=== PATIENT | female | born 1995 | race Caucasian/White ===

== ENCOUNTER 2016-07-09 12:52 | Emergency (ER) | payer BC ==
[2016-07-09 13:12] VITALS: BP 124/81; PULSE 103; RESP 18; TEMP 97.3
[2016-07-09] MEDS ORDERED: SODIUM CHLORIDE 0.9% 1,000 ML IV STA ×2 (13:32)
[2016-07-09] MEDS ORDERED: ONDANSETRON 4 MG/2 ML VIAL IVP STA (13:32)
[2016-07-09] MEDS ORDERED: LORazepam 2 MG/ML SYRINGE IV STA (13:33)
[2016-07-09] MEDS ORDERED: PANTOPRAZOLE 40 MG/10 ML VIAL IVP STA (13:33)
[2016-07-09] MEDS ORDERED: diphenhydrAMINE 50 MG/ML 1 ML VIAL IVP STA (13:33)
--- NOTE | 2016-07-09 13:55 | ED ---
General Adult HPI - General Chief complaint: Nausea/Vomiting/Diarrhea Stated complaint: Vomiting Time Seen by Provider: 07/09/16 13:16 Source: patient, RN notes reviewed, old records reviewed Mode of arrival: ambulatory Limitations: no limitations - History of Present Illness Initial comments: Is a 21-year-old female here for evaluation. This patient presents for evaluation of nausea and vomiting. Patient does have stomach issues. Unknown causes. Patient states that underbelly services regarding severe and continuous. APtient takes no medications, may have went out last night per her father as patient is unable to talk or conversate secondarily to active vomiting - Related Data Home Medications Medication Instructions Recorded Confirmed No Known Home Medications [No 07/09/16 07/09/16 Known Home Medications] Allergies Allergy/AdvReac Type Severity Reaction Status Date / Time No Known Allergies Allergy Verified 07/09/16 13:16 Review of Systems ROS Statement: Those systems with pertinent positive or pertinent negative responses have been documented in the HPI. ROS Other: All systems not noted in ROS Statement are negative. Past Medical History Past Medical History: No Reported History History of Any Multi-Drug Resistant Organisms: None Reported Past Surgical History: No Surgical Hx Reported Past Psychological History: No Psychological Hx Reported Smoking Status: Never smoker Past Alcohol Use History: Occasional Past Drug Use History: None Reported General Exam Limitations: no limitations General appearance: alert, in no apparent distress, anxious, in distress Head exam: Present: atraumatic, normocephalic, normal inspection Eye exam: Present: normal appearance, PERRL, EOMI. Absent: scleral icterus, conjunctival injection, periorbital swelling ENT exam: Present: normal exam, mucous membranes moist Neck exam: Present: normal inspection. Absent: tenderness, meningismus, lymphadenopathy Respiratory exam: Present: normal lung sounds bilaterally. Absent: respiratory distress, wheezes, rales, rhonchi, stridor Cardiovascular Exam: Present: normal rhythm, tachycardia, normal heart sounds. Absent: systolic murmur, diastolic murmur, rubs, gallop, clicks GI/Abdominal exam: Present: soft, normal bowel sounds. Absent: distended, tenderness, guarding, rebound, rigid Extremities exam: Present: normal inspection, full ROM, normal capillary refill. Absent: tenderness, pedal edema, joint swelling, calf tenderness Back exam: Present: normal inspection Neurological exam: Present: alert, oriented X3, CN II-XII intact Psychiatric exam: Present: normal affect, normal mood Skin exam: Present: warm, dry, intact, normal color. Absent: rash Course Vital Signs 07/09/16 13:09 Temperature 97.3 F L Pulse Rate 103 H Respiratory 18 Rate Blood Pressure 124/81 O2 Sat by Pulse 99 Oximetry - Reevaluation(s) Reevaluation #1: 07/09/16 13:53 patients symptoms are resolved Medical Decision Making - Medical Decision Making 21 female to ED with nausea and vomiting, patients symptoms are improved and is ok for dishcharge Disposition Clinical Impression: Dehydration, Nausea and vomiting Disposition: HOME SELF-CARE Instructions: Acute Nausea and Vomiting (ED) Referrals: J Carlos Bright MD [Primary Care Provider] - 1-2 days
[2016-07-09 14:10] LABS: Basophils % (A) 0 %; CH 31.8; CHCM 34.8; Eosinophils % (A) 0 %; HCT 43.9 % (34.0-46.0); HDW 2.56; Luc # (Auto) 0.05; Luc % (Auto) 1; Lymphocytes # (A) 0.7 k/uL (1.0-4.8); Lymphocytes % (A) 7 %; MCH 31.5 pg (25.0-35.0); MCHC 34.3 g/dL (31.0-37.0); MCV 91.8 fL (80.0-100.0); Mean Platelet Volume 6.8; Monocytes # (A) 0.3 k/uL (0-1.0); Monocytes % (A) 3 %; Neutrophils # (A) 8.1 k/uL (1.3-7.7); Neutrophils % (A) 89 %; RBC 4.78 m/uL (3.80-5.40); RDW 12.7 % (11.5-15.5); WBC 9.1 k/uL (3.8-10.6); WBC (Perox) 9.05
[2016-07-09 14:19] LABS: ALT 36 U/L (9-52); AST 37 U/L (14-36); Alcohol <10 mg/dL; Alkaline Phosphatase 61 U/L (38-126); Anion Gap 14 mmol/L; Blood Urea Nitrogen 14 mg/dL (7-17); Calcium 10.3 mg/dL (8.4-10.2); Carbon Dioxide 22 mmol/L (22-30); Chloride 107 mmol/L (98-107); Glucose 141 mg/dL (74-99); Magnesium 1.7 mg/dL (1.6-2.3); Non-African American GFR(MDRD) >60 (>60 ml/min/1.73 sqM); Sodium 143 mmol/L (137-145); Total Bilirubin 0.9 mg/dL (0.2-1.3); Total Protein 8.5 g/dL (6.3-8.2)
[2016-07-09 14:21] LABS: Potassium 3.7 mmol/L (3.5-5.1)
== END 2016-07-09 15:37 | disposition home or self-care (01) ==
LOC: EC 12:52
DX: E86.0 Dehydration (principal)
CPT/HCPCS: 36415; 80053; 83735; 84100; 85025; 80320; 99284; 96374; 96375 ×3; 96361; J2060; J1200; J2405; C9113

== ENCOUNTER 2019-07-28 06:52 | Emergency (ER) | payer BC ==
[2019-07-28 07:04] VITALS: TEMP 98.2
[2019-07-28] MEDS ORDERED: METOCLOPRAMIDE 5 MG/ML 2 ML VIAL IVP STA (07:17)
[2019-07-28] MEDS ORDERED: SODIUM CHLORIDE 0.9% 1,000 ML IV STA (07:17)
--- NOTE | 2019-07-28 07:29 | ED ---
General Adult HPI - General Chief complaint: Nausea/Vomiting/Diarrhea Stated complaint: Vomiting Time Seen by Provider: 07/28/19 07:06 Source: patient, family, RN notes reviewed, old records reviewed Mode of arrival: ambulatory Limitations: no limitations - History of Present Illness Initial comments: 24-year-old female patient presents to ED for evaluation of nausea vomiting abdominal pain. Patient states that starting on she began having naus ea and vomiting. Patient states that she cannot stop vomiting. Reports that she has pain all over her abdomen. Denies any localized area. Denies any other complaints at this time. Systemic: Pt denies fatigue, fever/chills, rash. Pt denies weakness, night sweats, weight loss. Neuro: Pt denies headache, visual disturbances, syncope or pre-syncope. HEENT: Pt denies ocular discharge or irritation, otalgia, rhinorrhea, pharyngitis or notable lymphadenopathy. Cardiopulmonary: Pt denies chest pain, SOB, heart palpitations, dyspnea on exertion. : Pt denies dysuria, burning w/ urination, frequency/urgency. Denies new onset urinary or bowel incontinence. MSK: Pt denies myalgia, loss of strength or function in extremities. Neuro: Pt denies new onset weakness, paresthesias. - Related Data Home Medications Medication Instructions Recorded Confirmed No Known Home Medications 07/09/16 07/09/16 Allergies Allergy/AdvReac Type Severity Reaction Status Date / Time No Known Allergies Allergy Verified 07/28/19 06:58 Review of Systems ROS Statement: Those systems with pertinent positive or pertinent negative responses have been documented in the HPI. ROS Other: All systems not noted in ROS Statement are negative. Past Medical History Past Medical History: No Reported History History of Any Multi-Drug Resistant Organisms: None Reported Past Surgical History: No Surgical Hx Reported Past Psychological History: No Psychological Hx Reported Smoking Status: Current some day smoker Past Alcohol Use History: Occasional Past Drug Use History: Marijuana General Exam - General Exam Comments Initial Comments: Constitutional: NAD, AOX3, Pt has pleasant affect. HEENT: NC/AT, trachea midline, neck supple, no lymphadenopathy. External ears appear normal, without discharge. Mucous membranes moist. EOM intact. There is no scleral icterus. No pallor noted. Cardiopulmonary: RRR, no murmurs, rubs or gallops, no JVD noted. Lungs CTAB in anterior and posterior palmer. No peripheral edema. Abdominal exam: Abdomen soft and non-distended. Abdomen tender to palpation in periumbilical region. Bowel sounds active in LLQ. No hepatosplenomegaly. No ecchymosis Neuro: CN II-XII grossly intact. No nuchal rigidity. No raccon eyes, no finch sign, no hemotympanum. No cervical spinal tenderness. MSK: Sensation intact in upper and lower extremities. Full active ROM in upper and lower extremities. Limitations: no limitations Course Vital Signs 07/28/19 07/28/19 06:59 09:02 Temperature 98.2 F Pulse Rate 114 H 92 Respiratory 22 18 Rate Blood Pressure 127/78 132/78 O2 Sat by Pulse 99 99 Oximetry Medical Decision Making - Medical Decision Making 24-year-old female patient presents to ED for evaluation of nausea vomiting abdominal pain. Patient states that starting on she began having nausea and vomiting. Patient states that she cannot stop vomiting. Reports that she has pain all over her abdomen. Denies any localized area. Denies any other complaints at this time. Patient vital signs are stable, afebrile. Ph ysical exam displayed periumbilical abdominal tenderness. Laboratory investigations are obtained and are overall unremarkable. Patient does have blood in her urine and is on her menses at this time. CT abdomen and pelvis displays what appears to be appendix within normal limits. Patient is not t seferino in the right lower quadrant region. Also displays multiple crenulated appearing follicles in the left ovary which may be hemorrhagic follicles. Moderate amount of free fluid in the pelvis also noted ostomy physiologic in nature related to ruptured cyst. Patient symptoms are well controlled. Repeat abdominal exam again confirms very mild tenderness in the periumbilical region. There is no lower quadrant tenderness whatsoever. Patient also denies this. Patient reports that she had similar symptoms approximately one month ago when she started her menses however it only lasted one day. Patient is stable at time of discharge. There is no active vomiting. States that she feels much improved. Patient was bolused 1.5 L normal saline emergency Department will be discharged with outpatient primary care and [employer] follow-up. Will return to ER if condition worsens. Case discussed with Dr. Cuevas. - Lab Data Result diagrams: 07/28/19 07:28 07/28/19 07:28 Lab Results 07/28/19 07/28/19 07/28/19 Range/Units 07:20 07:28 07:28 WBC 7.6 (3.8-10.6) k/uL RBC 4.91 (3.80-5.40) m/uL Hgb 14.9 (11.4-16.0) gm/dL Hct 45.4 (34.0-46.0) % MCV 92.5 (80.0-100.0) fL MCH 30.3 (25.0-35.0) pg MCHC 32.8 (31.0-37.0) g/dL RDW 12.5 (11.5-15.5) % Plt Count 270 (150-450) k/uL Neutrophils % 61 % Lymphocytes % 27 % Monocytes % 7 % Eosinophils % 3 % Basophils % 1 % Neutrophils # 4.6 (1.3-7.7) k/uL Lymphocytes # 2.0 (1.0-4.8) k/uL Monocytes # 0.5 (0-1.0) k/uL Eosinophils # 0.3 (0-0.7) k/uL Basophils # 0.0 (0-0.2) k/uL Sodium 141 (137-145) mmol/L Potassium 4.1 (3.5-5.1) mmol/L Chloride 108 H (98-107) mmol/L Carbon Dioxide 19 L (22-30) mmol/L Anion Gap 14 mmol/L BUN 9 (7-17) mg/dL Creatinine 0.58 (0.52-1.04) mg/dL Est GFR (CKD-EPI)AfAm >90 (>60 ml/min/1.73 sqM) Est GFR (CKD-EPI)NonAf >90 (>60 ml/min/1.73 sqM) Glucose 105 H (74-99) mg/dL Calcium 9.7 (8.4-10.2) mg/dL Total Bilirubin 0.5 (0.2-1.3) mg/dL AST 24 (14-36) U/L ALT 16 (4-34) U/L Alkaline Phosphatase 75 (38-126) U/L Total Protein 8.3 H (6.3-8.2) g/dL Albumin 4.8 (3.5-5.0) g/dL Lipase 141 (23-300) U/L HCG, Qual Urine Color Yellow Urine Appearance Cloudy H (Clear) Urine pH 5.5 (5.0-8.0) Ur Specific [place] 1.027 (1.001-1.035) Urine Protein 1+ H (Negative) Urine Glucose (UA) Negative (Negative) Urine Ketones Trace H (Negative) Urine Blood Large H (Negative) Urine Nitrite Negative (Negative) Urine Bilirubin Negative (Negative) Urine Urobilinogen <2.0 (<2.0) mg/dL Ur Leukocyte Esterase Trace H (Negative) Urine RBC 1 (0-5) /hpf Urine WBC 4 (0-5) /hpf Ur Squamous Epith Cells 21 H (0-4) /hpf Urine Bacteria Occasional H (None) /hpf Hyaline Casts 8 H (0-2) /lpf Urine Mucus Many H (None) /hpf 07/28/19 Range/Units 07:28 WBC (3.8-10.6) k/uL RBC (3.80-5.40) m/uL Hgb (11.4-16.0) gm/dL Hct (34.0-46.0) % MCV (80.0-100.0) fL MCH (25.0-35.0) pg MCHC (31.0-37.0) g/dL RDW (11.5-15.5) % Plt Count (150-450) k/uL Neutrophils % % Lymphocytes % % Monocytes % % Eosinophils % % Basophils % % Neutrophils # (1.3-7.7) k/uL Lymphocytes # (1.0-4.8) k/uL Monocytes # (0-1.0) k/uL Eosinophils # (0-0.7) k/uL Basophils # (0-0.2) k/uL Sodium (137-145) mmol/L Potassium (3.5-5.1) mmol/L Chloride (98-107) mmol/L Carbon Dioxide (22-30) mmol/L Anion Gap mmol/L BUN (7-17) mg/dL Creatinine (0.52-1.04) mg/dL Est GFR (CKD-EPI)AfAm (>60 ml/min/1.73 sqM) Est GFR (CKD-EPI)NonAf (>60 ml/min/1.73 sqM) Glucose (74-99) mg/dL Calcium (8.4-10.2) mg/dL Total Bilirubin (0.2-1.3) mg/dL AST (14-36) U/L ALT (4-34) U/L Alkaline Phosphatase (38-126) U/L Total Protein (6.3-8.2) g/dL Albumin (3.5-5.0) g/dL Lipase (23-300) U/L HCG, Qual Not Detected Urine Color Urine Appearance (Clear) Urine pH (5.0-8.0) Ur Specific [place] (1.001-1.035) Urine Protein (Negative) Urine Glucose (UA) (Negative) Urine Ketones (Negative) Urine Blood (Negative) Urine Nitrite (Negative) Urine Bilirubin (Negative) Urine Urobilinogen (<2.0) mg/dL Ur Leukocyte Esterase (Negative) Urine RBC (0-5) /hpf Urine WBC (0-5) /hpf Ur Squamous Epith Cells (0-4) /hpf Urine Bacteria (None) /hpf Hyaline Casts (0-2) /lpf Urine Mucus (None) /hpf Disposition Clinical Impression: Nausea and vomiting, Abdominal pain Disposition: HOME SELF-CARE Condition: Stable Instructions (If sedation given, give patient instructions): Acute Nausea and Vomiting (ED) Additional Instructions: Follow-up with primary care provider tomorrow. May use Zofran every 8 hours as needed for nausea. Continue to drink lots of fluids. Return immediately to ER if condition worsens in any way. Is patient prescribed a controlled substance at d/c from ED?: No Referrals: None,Stated [Primary Care Provider] - 1-2 days Zbigniew Muir [STAFF PHYSICIAN] - 1-2 days
[2019-07-28 07:42] LABS: Basophils % (A) 1 %; Eosinophils # (A) 0.3 k/uL (0-0.7); Eosinophils % (A) 3 %; HCT 45.4 % (34.0-46.0); HGB 14.9 gm/dL (11.4-16.0); Lymphocytes % (A) 27 %; MCH 30.3 pg (25.0-35.0); MCHC 32.8 g/dL (31.0-37.0); MCV 92.5 fL (80.0-100.0); Mean Platelet Volume 7.2; Monocytes # (A) 0.5 k/uL (0-1.0); Monocytes % (A) 7 %; Neutrophils # (A) 4.6 k/uL (1.3-7.7); Neutrophils % (A) 61 %; Platelet Count 270 k/uL (150-450); RBC 4.91 m/uL (3.80-5.40); RDW 12.5 % (11.5-15.5); WBC 7.6 k/uL (3.8-10.6)
[2019-07-28 07:54] LABS: ALT 16 U/L (4-34); AST 24 U/L (14-36); African American GFR (CKD) >90 (>60 ml/min/1.73 sqM); Albumin 4.8 g/dL (3.5-5.0); Alkaline Phosphatase 75 U/L (38-126); Anion Gap 14 mmol/L; Blood Urea Nitrogen 9 mg/dL (7-17); Calcium 9.7 mg/dL (8.4-10.2); Carbon Dioxide 19 mmol/L (22-30); Chloride 108 mmol/L (98-107); Glucose 105 mg/dL (74-99); Non-African American GFR(CKD) >90 (>60 ml/min/1.73 sqM); Potassium 4.1 mmol/L (3.5-5.1); Sodium 141 mmol/L (137-145); Total Bilirubin 0.5 mg/dL (0.2-1.3); Total Protein 8.3 g/dL (6.3-8.2)
[2019-07-28] MEDS ORDERED: ONDANSETRON 4 MG/2 ML VIAL IVP STA (07:55)
[2019-07-28] MEDS ORDERED: KETOROLAC 30 MG/ML 1 ML VIAL IVP STA (07:55)
[2019-07-28 08:23] LABS: Appearance,Urine Cloudy (Clear); Bacteria,Urine Occasional /hpf; Bilirubin,Urine Negative (Negative); Blood,Urine Large (Negative); Color,Urine Yellow; Glucose,Urine (UA) Negative (Negative); Hyaline Casts,Urine 8 /lpf (0-2); Ketones,Urine Trace (Negative); Leukocyte Esterase,Urine Trace (Negative); Mucus,Urine Many /hpf; Nitrite,Urine Negative (Negative); PH, Urine 5.5 (5.0-8.0); Protein,Urine 1+ (Negative); RBC,Urine 1 /hpf (0-5); Specific Gravity,Urine 1.027 (1.001-1.035); Squamous Epithelial Cell,Urine 21 /hpf (0-4); Urobilinogen,Urine <2.0 mg/dL (<2.0); WBC,Urine 4 /hpf (0-5)
[2019-07-28] MEDS ORDERED: SODIUM CHLORIDE 0.9% 500 ML 500 ML IV ONE (08:53)
[2019-07-28 09:04] VITALS: RESP 18
--- NOTE | 2019-07-28 09:17 | CT ---
EXAMINATION TYPE: CT abdomen pelvis w con DATE OF EXAM: 07/28/2019 HISTORY: vomiting since CT DLP: 498.3mGycm Automated Exposure Control for Dose Reduction was Utilized. CONTRAST: CT scan of the abdomen and pelvis is performed with IV Contrast, patient injected with 100 mL of Isov ue 300. COMPARISON: None. FINDINGS: LUNG BASES: No significant abnormality is appreciated. LIVER/GB: No significant abnormality is appreciated. No radiopaque calculi in the gallbladder. PANCREAS: No significant abnormality is seen. SPLEEN: No splenomegaly. ADRENALS: No significant abnormality is seen. KIDNEYS: Kidneys enhance and excrete symmetrically without hydronephrosis. BOWEL: What appears to be the appendix is within normal limits and air-containing and coronal image 4 3 and axial image 58. UTERUS/ADNEXA: There is free fluid within the pelvis and multiple crenulated left ovarian lesions, po ssibly hemorrhagic follicles. Low-attenuation of the endometrium likely relates to phase of menses. LYMPH NODES: No greater than 1cm abdominal or pelvic lymph nodes are appreciated. OSSEOUS STRUCTURES: No significant abnormality is seen. IMPRESSION: 1. Although the appendix is poorly visualized, difficult to separate from adjacent bowel loops, what appears to be the appendix is within normal limits. If there is further clinical concern for acute ap pendicitis repeat examination with oral contrast would be of benefit. 2. Multiple crenulated appearing follicles in the left ovary may be hemorrhagic follicles. Moderate a mount of free fluid in the pelvis is also noted, possibly physiologic in nature related to recently r uptured cyst.
[2019-07-28] MEDS ORDERED: LORazepam 2 MG/ML INJ IV STA ×2 (09:55)
[2019-07-28] MEDS ORDERED: ONDANSETRON 4 MG ODT STARTER PACK 2 TAB BTL PO STA (11:02)
[2019-07-28 11:26] VITALS: BP 121/74; PULSE 80
== END 2019-07-28 11:23 | disposition home or self-care (01) ==
LOC: EC 06:52
DX: R11.2 Nausea with vomiting, unspecified (principal); R10.9 Unspecified abdominal pain; R10.815 Periumbilic abdominal tenderness; R31.9 Hematuria, unspecified; F17.200 Nicotine dependence, unspecified, uncomplicated
CPT/HCPCS: 36415; 80053; 83690; 85025; 81001; 84703; 74177; 99284; 96374; 96375 ×3; 96361 ×2; J2060; J2765; J2405; J1885; S0119; Q9967

== ENCOUNTER 2019-07-28 14:51 | Observation (INO) | payer BC ==
[2019-07-28] MEDS ORDERED: LORazepam 2 MG/ML INJ IV STA (15:11)
[2019-07-28] MEDS ORDERED: METOCLOPRAMIDE 5 MG/ML 2 ML VIAL IVP STA (15:11)
[2019-07-28] MEDS ORDERED: SODIUM CHLORIDE 0.9% 500 ML 500 ML IV STA (15:11)
--- NOTE | 2019-07-28 15:16 | ED ---
General Adult HPI - General Source: patient, family Mode of arrival: ambulatory Limitations: no limitations <Jennifer Hunt - Last Filed: 07/28/19 17:43> <Arina Cortés - Last Filed: 07/31/19 11:47> - General Chief complaint: Abdominal Pain Stated complaint: Vomiting Time Seen by Provider: 07/28/19 15:03 - History of Present Illness Initial comments: Patient is a 24-year-old female presenting to the emergency Department with complaints of nausea, vomiting, lower abdominal pain 3 days. Patient was seen in the ER just earlier today for same thing. Patient states she went home, was feeling better and took a nap. Patient states she woke up from her nap approximately 1 hour ago and started having nausea, vomiting, lower abdominal pain again. She has been vomiting since. She states she did not realize she was able to take the Zofran medicine so soon so she did not attempt this. He describes the abdominal pain as mostly lower abdominal cramping. Mother is also here with patient's they believe that these symptoms may be related to her menstrual cycle. Patient states this happened last month that only lasted for a day. She just recently started her period and this is going on for 3 days now. She states she has not seen an CORPORATE GENERAL MANAGER yet as she is "afraid of what they might tell her." She denies any recent fever, chills, chest pain, shortness of breath. She denies any urinary complaints. She has no further complaints at this time. Upon arrival to the ER, patient is tachycardia at 120, rest of vitals normal. (Jennifer Hunt) - Related Data Previous Rx's Medication Instructions Recorded Ondansetron Odt [Zofran Odt] 4 mg PO Q8HR PRN #12 tab 07/29/19 Allergies Allergy/AdvReac Type Severity Reaction Status Date / Time No Known Allergies Allergy Verified 07/28/19 17:26 Review of Systems ROS Other: All systems not noted in ROS Statement are negative. <Jennifer Hunt - Last Filed: 07/28/19 17:43> ROS Other: All systems not noted in ROS Statement are negative. <Arina Cortés - Last Filed: 07/31/19 11:47> ROS Statement: Those systems with pertinent positive or pertinent negative responses have been documented in the HPI. Past Medical History Past Medical History: No Reported History History of Any Multi-Drug Resistant Organisms: None Reported Past Surgical History: No Surgical Hx Reported Past Psychological History: No Psychological Hx Reported Smoking Status: Current every day smoker Past Alcohol Use History: Occasional Past Drug Use History: Marijuana <Jennifer Hunt Melani - Last Filed: 07/28/19 17:43> General Exam Limitations: no limitations <MarileeJennifer Melani - Last Filed: 07/28/19 17:43> - General Exam Comments Initial Comments: GENERAL: Nontoxic appearing, is dry heaving, teary-eyed, in no acute distress. HEAD: Atraumatic, normocephalic. EYES: Pupils equal round and reactive to light, extraocular movements intact, sclera anicteric, conjunctiva are normal. ENT: TMs normal, nares patent, oropharynx clear without exudates. Moist mucous membranes. NECK: Normal range of motion, supple without lymphadenopathy or JVD. LUNGS: Breath sounds clear to auscultation bilaterally and equal. No wheezes rales or rhonchi. HEART: Tachycardia rate and rhythm without murmurs, rubs or gallops. ABDOMEN: Lower abdominal discomfort, no acute severe pain. Soft, normoactive bowel sounds. No guarding, no rebound. No masses appreciated. : Deferred EXTREMITIES: Normal range of motion, no pitting or edema. No clubbing or cyanosis. NEUROLOGICAL: Normal speech, normal gait. PSYCH: Normal mood, normal affect. SKIN: Warm, Dry, normal turgor, no rashes or lesions noted. (Jennifer Hunt) Course Vital Signs 07/28/19 14:56 Temperature 98.2 F Pulse Rate 120 H Respiratory 18 Rate Blood Pressure 128/82 O2 Sat by Pulse 100 Oximetry Medical Decision Making <MarileeVereniceJennifre L - Last Filed: 07/28/19 17:43> - Lab Data Result diagrams: 07/29/19 07:25 07/29/19 07:25 <Arina Cortés - Last Filed: 07/31/19 11:47> - Medical Decision Making Patient is a 24-year-old female here for nausea, vomiting, lower abdominal cramping 3 days. Patient was seen in the ER earlier today for same complaint. Previous lab work and imaging was reviewed. CT earlier today shows a multiple follicles in the left ovary, moderate amount of free fluid in the pelvis which could bephysiologic in nature or related to a recently ruptured cyst. Patient is not . Patient was given fluids, Reglan, Ativan. She was resting comfortably but upon recheck and speaking with patient states started becoming nauseous again. Consulted with admitting physician who recommended a dose of Tigan. We did try this medication however patient remains nauseous. Patient will be admitted for intractable nausea and vomiting. Dr. Vasquez is accepting. Patient is agreement with this plan of care. Case discussed with Dr. Cortés. (Jennifer Hunt) I was available for consultation in the emergency department. The history and physical exam were done by the midlevel provider. I was consulted for this patients care. I reviewed the case with the midlevel provider and based on their presentation of the patient, I agree with the assessment, medical decision making and plan of care as documented. Chart was dictated using [employer] dictation software. Attempts were made to correct any dictation errors however some typographical errors may persist. Patient was seen during a national state of emergency due to the Covid-19 pandemic. (Arina Cortés) Disposition Is patient prescribed a controlled substance at d/c from ED?: No Decision Date: 07/28/19 Decision Time: 17:45 <Jennifer Hunt - Last Filed: 07/28/19 17:43> <Arina Cortés - Last Filed: 07/31/19 11:47> Clinical Impression: Intractable nausea and vomiting Disposition: ADMITTED IP TO THIS HOSP Condition: Good
[2019-07-28] MEDS ORDERED: TRIMETHOBENZAMIDE 100 MG/ML 2 ML VIAL IM STA (16:21)
[2019-07-28] MEDS ORDERED: NALOXONE 0.4 MG/ML 1 ML VIAL IV PRN (17:41)
[2019-07-28] MEDS ORDERED: IBUPROFEN 400 MG TAB PO PRN (17:41)
[2019-07-28] MEDS: SODIUM CHLORIDE 0.9% 1,000 ML IV SCH (18:06)
[2019-07-28] MEDS ORDERED: ACETAMINOPHEN TAB 325 MG TAB PO PRN (18:46)
[2019-07-28] MEDS ORDERED: TRIMETHOBENZAMIDE 300 MG CAP PO PRN (18:58)
--- NOTE | 2019-07-28 19:01 | P.HPIM ---
History of Present Illness H&P Date: 07/28/19 Chief Complaint: Nausea and vomiting 24-year-old female with no past medical history presents the ED for intractable nausea and vomiting. Patient reports nausea and vomiting since . She reports epigastric discomfort related to throwing up. Her abdominal pain is at times localized to the left upper quadrant. Her last menstrual period started today. Patient reports previously undergoing upper and lower GI scopes along with nuclear studies which have all turned up negative. 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 Patient reports that her nausea and vomiting is usually cyclical and syncs with her menstrual cycle. Patient reports smoking marijuana a few times a week for many years. She denies any other illicit drug use, alcohol or smoking cigarettes. She denies any headache, lower nieves edema, fever or chills, cough, chest pain, shortness of breath, palpitations, changes in urination or bowel habits. No changes in appetite or weight. In the ED, vital signs were stable except for a pulse of 120. CBC was unremarkable. CMP showed chloride of 108 and HCO3 of 19, glucose of 105. HCG was negative. Lipase was negative. Urinalysis showed large blood and trace leukocyte esterase. Patient is admitted for intractable nausea and vomiting. Review of Systems Pertinent positives and negatives as discussed in HPI, a complete review of systems was performed and all other systems are negative. Past Medical History Past Medical History: No Reported History History of Any Multi-Drug Resistant Organisms: None Reported Past Surgical History: No Surgical Hx Reported Additional Past Surgical History / Comment(s): wisdom teeth extracted Past Anesthesia/Blood Transfusion Reactions: No Reported Reaction Past Psychological History: No Psychological Hx Reported Smoking Status: Never smoker Past Alcohol Use History: Occasional Past Drug Use History: Marijuana Medications and Allergies Home Medications Medication Instructions Recorded Confirmed Type No Known Home Medications 07/09/16 07/28/19 History Allergies Allergy/AdvReac Type Severity Reaction Status Date / Time No Known Allergies Allergy Verified 07/28/19 17:26 Physical Exam Vitals: Vital Signs Temp Pulse Pulse Resp BP BP Pulse Ox 07/28/19 18:23 98.1 F 81 12 120/73 93 L 07/28/19 18:15 98.7 F 96 18 115/81 98 07/28/19 14:56 98.2 F 120 H 18 128/82 100 Intake and Output 07/28/19 07/28/19 07/28/19 06:59 14:59 22:59 Other: Voiding Method Toilet Weight 54.431 kg 54.431 kg General: [non toxic], [moderate distress with dry heaving], [appears at stated age] Derm: [warm], [dry] Head: [atraumatic], [normocephalic], [symmetric] Eyes: [EOMI], [no lid lag], [anicteric sclera] Mouth: [no lip lesion], [mucus membranes moist] Cardiovascular: [S1S2 reg], [tachycardia], [positive DP pulse bilateral], Lungs: [CTA bilateral], [no rhonchi, no rales] , [no accessory muscle use] Abdominal: [soft], [ nontender to palpation], [no guarding], [no appreciable organomegaly] Ext: [no gross muscle atrophy], [no edema], [no contractures] Neuro: [no focal neuro deficits] Psych: [Alert], [oriented], [appropriate affect] Thrombosis Risk Factor Assmnt - Choose All That Apply Any of the Below Risk Factors Present?: No Other Risk Factors: No Thrombosis Risk Factor Assessment Level: Very Low Risk Assessment and Plan Assessment: Intractable nausea and vomiting Hyperchloremic metabolic acidosis Abnormal urinalysis Tachycardia Patient reports nausea and vomiting that is synchronous with her menstrual cycle. She also smokes marijuana on a chronic basis which leads to the possibility of cyclical vomiting syndrome. CT abdomen and pelvis was done this morning which shows multiple follicles in the left ovary, possibly hemorrhagic follicles. Her nausea will be controlled with Zofran and Tigan as needed. She'll be started on normal saline at 75 mL per hour. Her pain will be controlled with Tylenol, ibuprofen or morphine as needed. Her hyperchloremic metabolic acidosis is mild and likely related to infused IVF. Patient is found to have large blood and trace leukocyte esterase on urinalysis. The large blood is likely related to her menstrual cycle. She does not have any urinary complaints. Her tachycardia is likely related to forceful vomiting and epigastric pain. DVT prophylaxis: [SCD] Discussed with: [Patient and mother] Anticipated discharge: [1-2 days] Anticipated discharge place: [Home] A total of [35] minutes was spent on the care of this complex patient more than 50% of the time was spent in counseling and care coordination. Patient will be full code. Patient names her mother decision maker if she can't make decisions for herself.
[2019-07-28] MEDS: ONDANSETRON 4 MG/2 ML VIAL IVP PRN (19:47)
[2019-07-28] MEDS ORDERED: PROCHLORPERAZINE 10 MG TAB PO PRN (23:34)
[2019-07-29] MEDS: METOCLOPRAMIDE 5 MG/ML 2 ML VIAL IVP PRN ×3 (00:03→17:10)
[2019-07-29] MEDS: LORazepam 1 MG TAB PO PRN ×3 (00:03→21:00)
[2019-07-29 07:53] LABS: Basophils % (A) 0 %; Eosinophils # (A) 0.1 k/uL (0-0.7); Eosinophils % (A) 2 %; HCT 38.2 % (34.0-46.0); HGB 12.2 gm/dL (11.4-16.0); Lymphocytes # (A) 1.8 k/uL (1.0-4.8); Lymphocytes % (A) 24 %; MCHC 31.9 g/dL (31.0-37.0); MCV 94.1 fL (80.0-100.0); Mean Platelet Volume 7.5; Monocytes # (A) 0.6 k/uL (0-1.0); Monocytes % (A) 8 %; Neutrophils # (A) 4.8 k/uL (1.3-7.7); Neutrophils % (A) 63 %; Platelet Count 196 k/uL (150-450); RBC 4.05 m/uL (3.80-5.40); RDW 12.7 % (11.5-15.5); WBC 7.6 k/uL (3.8-10.6)
[2019-07-29] MEDS: ONDANSETRON 4 MG/2 ML VIAL IVP PRN ×3 (08:52→23:41)
[2019-07-29] MEDS: SODIUM CHLORIDE 0.9% 1,000 ML IV SCH ×2 (08:59→20:13)
[2019-07-29 09:00] LABS: ALT 12 U/L (4-34); AST 17 U/L (14-36); African American GFR (CKD) >90 (>60 ml/min/1.73 sqM); Albumin 3.6 g/dL (3.5-5.0); Alkaline Phosphatase 49 U/L (38-126); Anion Gap 10 mmol/L; Blood Urea Nitrogen 8 mg/dL (7-17); Calcium 8.6 mg/dL (8.4-10.2); Carbon Dioxide 18 mmol/L (22-30); Chloride 110 mmol/L (98-107); Glucose 66 mg/dL (74-99); Non-African American GFR(CKD) >90 (>60 ml/min/1.73 sqM); Potassium 3.6 mmol/L (3.5-5.1); Sodium 138 mmol/L (137-145); Total Bilirubin 0.6 mg/dL (0.2-1.3); Total Protein 6.6 g/dL (6.3-8.2)
[2019-07-29] MEDS: MORPHINE SULFATE 2 MG/ML SYRINGE IV PRN ×3 (09:11→20:45)
--- NOTE | 2019-07-29 16:02 | P.DS ---
Providers Date of admission: 07/28/19 17:35 Expected date of discharge: 07/29/19 Attending physician: Uriel Vasquez MD Primary care physician: Stated None Hospital Course: 24-year-old female with no past medical history presents the ED for intractable nausea and vomiting. Patient reports nausea and vomiting since . She reports epigastric discomfort related to throwing up. Her abdominal pain is at times localized to the left upper quadrant. Her last menstrual period started today. Patient reports previously undergoing upper and lower GI scopes along with nuclear studies which have all turned up negative. 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 Patient reports that her nausea and vomiting is usually cyclical and syncs with her menstrual cycle. Patient reports smoking marijuana a few times a week for many years. She denies any other illicit drug use, alcohol or smoking cigarettes. She denies any headache, lower nieves edema, fever or chills, cough, chest pain, shortness of breath, palpitations, changes in urination or bowel habits. No changes in appetite or weight. In the ED, vital signs were stable except for a pulse of 120. CBC was unremarkable. CMP showed chloride of 108 and HCO3 of 19, glucose of 105. HCG was negative. Lipase was negative. Urinalysis showed large blood and trace leukocyte esterase. Patient is admitted for intractable nausea and vomiting. Patient reports nausea and vomiting that is synchronous with her menstrual cycle. She also smokes marijuana on a chronic basis which leads to the possibility of cyclical vomiting syndrome. CT abdomen and pelvis was done this morning which shows multiple follicles in the left ovary, possibly hemorrhagic follicles. She was started on Zofran and Tigan as needed. She was started on normal saline at 75 mL per hour. Her pain was controlled with Tylenol, ibuprofen or morphine as needed. Her hyperchloremic metabolic acidosis is mild and likely related to infused IVF. Patient is found to have large blood and trace leukocyte esterase on urinalysis. The large blood is likely related to her menstrual cycle. She does not have any urinary complaints. Her tachycardia is likely related to forceful vomiting and epigastric pain. Patient was seen and examined this morning. No acute events overnight. Patient reports improvement in her nausea and vomiting but continues to complain of dry heaving. She has been able to tolerate clear liquid diet into this afternoon. General: [non toxic], [mild distress with dry heaving], [appears at stated age] Derm: [warm], [dry] Head: [atraumatic], [normocephalic], [symmetric] Eyes: [EOMI], [no lid lag], [anicteric sclera] Mouth: [no lip lesion], [mucus membranes moist] Cardiovascular: [S1S2 reg], [tachycardia], [positive DP pulse bilateral], Lungs: [CTA bilateral], [no rhonchi, no rales] , [no accessory muscle use] Abdominal: [soft], [ nontender to palpation], [no guarding], [no appreciable organomegaly] Ext: [no gross muscle atrophy], [no edema], [no contractures] Neuro: [no focal neuro deficits] Psych: [Alert], [oriented], [appropriate affect] Intractable nausea and vomiting Hyperchloremic metabolic acidosis Abnormal urinalysis Tachycardia Patient's intractable nausea and vomiting has improved. Patient reports feeling okay for discharge. We will discharge patient home with Zofran. She continues to be tachycardic but is regular and likely related to her nausea and vomiting. Follow-up with PCP within 3 days of discharge. Patient advised on cessation of marijuana. Pertinent Studies: CT abdomen and pelvis Patient Condition at Discharge: Good Plan - Discharge Summary Discharge Rx Participant: No New Discharge Prescriptions: New Ondansetron Odt [Zofran Odt] 4 mg PO Q8HR PRN #12 tab PRN Reason: nausea Discharge Medication List Ondansetron Odt [Zofran Odt] 4 mg PO Q8HR PRN #12 tab 07/29/19 [Rx] Follow up Appointment(s)/Referral(s): None,Stated [Primary Care Provider] - 1-2 days Activity/Diet/Wound Care/Special Instructions: Diet: Regular FU PCP within 3 days of DC. Please stop smoking marijuana. Take all medications as advised. Discharge Disposition: HOME SELF-CARE
[2019-07-30] MEDS: METOCLOPRAMIDE 5 MG/ML 2 ML VIAL IVP PRN ×2 (03:27→10:38)
[2019-07-30 03:32] VITALS: RESP 16
[2019-07-30] MEDS: MORPHINE SULFATE 2 MG/ML SYRINGE IV PRN (03:38)
[2019-07-30] MEDS: LORazepam 1 MG TAB PO PRN (06:32)
[2019-07-30] MEDS: ONDANSETRON 4 MG/2 ML VIAL IVP PRN (07:46)
[2019-07-30 08:25] VITALS: BP 110/71; PULSE 116; TEMP 98
--- NOTE | 2019-07-30 15:45 | P.PN ---
Subjective Progress Note Date: 07/30/19 Principal diagnosis: Nausea and vomiting Patient was seen and examined. No acute events overnight. Patient reports considerable improvement in her nausea and vomiting. She continues to complain of nausea but is able to tolerate clear liquids. She denies any chest pain, shortness breath or palpitations. No fever or chills. Comfortable going home today. Yesterday discharge was held after patient had worsening nausea and dry heaving after discharge order was placed. Objective - Vital Signs Vital signs: Vital Signs Temp 98.0 F 07/30/19 08:00 Pulse 116 H 07/30/19 08:00 Resp 16 07/30/19 08:00 BP 110/71 07/30/19 08:00 Pulse Ox 98 07/30/19 08:00 Intake & Output 07/29/19 07/30/19 07/30/19 18:59 06:59 18:59 Intake Total 600 Output Total 210 90 Balance 390 -90 Weight 55 kg Intake: Intake, IV Titration 600 Amount Sodium Chloride 0.9% 1, 600 000 ml @ 75 mls/hr IV . [id number] [facility] Rx#:[id number] Output: Emesis 210 90 Other: Voiding Method Toilet Toilet Toilet # Voids 3 1 2 # Emeses 1 1 - Exam General: [non toxic], [mild distress], [appears at stated age] Derm: [warm], [dry] Head: [atraumatic], [normocephalic], [symmetric] Eyes: [EOMI], [no lid lag], [anicteric sclera] Mouth: [no lip lesion], [mucus membranes moist] Cardiovascular: [S1S2 reg], [tachycardia], [positive DP pulse bilateral], Lungs: [CTA bilateral], [no rhonchi, no rales] , [no accessory muscle use] Abdominal: [soft], [ nontender to palpation], [no guarding], [no appreciable organomegaly] Ext: [no gross muscle atrophy], [no edema], [no contractures] Neuro: [no focal neuro deficits] Psych: [Alert], [oriented], [appropriate affect] - Labs CBC & Chem 7: 07/29/19 07:25 07/29/19 07:25 Assessment and Plan Assessment: Intractable nausea and vomiting Hyperchloremic metabolic acidosis Abnormal urinalysis Tachycardia Patient's intractable nausea and vomiting has improved. Patient reports feeling okay for discharge. We will discharge patient home with Bradly. She continues to be tachycardic but is regular and likely related to her nausea and vomiting. Follow-up with PCP within 3 days of discharge. Patient advised on cessation of marijuana as this is likely related to her cyclical vomiting syndrome.
== END 2019-07-30 12:14 | disposition home or self-care (01) ==
LOC: EC 14:51 → 1SOBS 17:35
PROVIDERS: ADMIT Internal Medicine; ATTEND Internal Medicine
DX: R11.2 Nausea with vomiting, unspecified (principal); E87.8 Other disorders of electrolyte and fluid balance, not elsewhere classified; E87.2 Acidosis; R00.0 Tachycardia, unspecified; R82.90 Unspecified abnormal findings in urine; R10.12 Left upper quadrant pain; R10.13 Epigastric pain; R11.15 Cyclical vomiting syndrome unrelated to migraine; R10.30 Lower abdominal pain, unspecified; T45.0X6A Underdosing of antiallergic and antiemetic drugs, initial encounter; F17.200 Nicotine dependence, unspecified, uncomplicated; Z79.899 Other long term (current) drug therapy; Z20.828 Contact with and (suspected) exposure to other viral communicable diseases
CPT/HCPCS: 96361 ×3; 96375 ×3; 96376 ×2; 96374 ×2; 99284; 36415; 80053 ×2; 83690; 85025 ×2; 81001; 84703; 74177; G0378 ×3; U0003; J2060; J2765 ×3; J3250; J2405 ×3; J1885; J2270 ×2; S0119; Q9967

== ENCOUNTER 2020-07-24 16:16 | Emergency (ER) | payer BC ==
[2020-07-24 16:27] VITALS: RESP 18; TEMP 98.1
[2020-07-24] MEDS ORDERED: METOCLOPRAMIDE 5 MG/ML 2 ML VIAL IVP STA (16:44)
[2020-07-24] MEDS ORDERED: SODIUM CHLORIDE 0.9% 1,000 ML IV STA (16:44)
[2020-07-24] MEDS ORDERED: diphenhydrAMINE 50 MG/ML 1 ML VIAL IVP STA ×2 (16:45→17:33)
[2020-07-24] MEDS ORDERED: FAMOTIDINE 20 MG/2 ML VIAL IV STA (16:45)
--- NOTE | 2020-07-24 16:47 | ED ---
General Adult HPI - General Chief complaint: Nausea/Vomiting/Diarrhea Stated complaint: Nausea Time Seen by Provider: 07/24/20 16:37 Source: patient, RN notes reviewed Mode of arrival: ambulatory Limitations: no limitations - History of Present Illness Initial comments: Patient is a pleasant 25-year-old female presenting to the emergency Department with complaints of nausea. Onset of symptoms was around 4 days ago. Patient does have history of similar symptoms previously associated with cyclic vomiting. Patient is unclear why. Patient does smoke marijuana however states when she stopped smoking marijuana symptoms do not get better. Patient has had multiple episodes of dry heaving today. Patient did go to urgent care and was given a shot of Zofran. Patient also had a negative test done. No fevers. No abdominal pain. - Related Data Previous Rx's Medication Instructions Recorded Ondansetron Odt [Zofran Odt] 4 mg PO Q8HR PRN #12 tab 07/29/19 Metoclopramide HCl [Reglan] 10 mg PO Q6HR PRN #15 tablet 07/24/20 Allergies Allergy/AdvReac Type Severity Reaction Status Date / Time No Known Allergies Allergy Verified 07/24/20 16:27 Review of Systems ROS Statement: Those systems with pertinent positive or pertinent negative responses have been documented in the HPI. ROS Other: All systems not noted in ROS Statement are negative. Constitutional: Denies: fever Eyes: Denies: eye pain ENT: Denies: ear pain Respiratory: Denies: cough Cardiovascular: Denies: chest pain Endocrine: Denies: fatigue Gastrointestinal: Reports: nausea. Denies: abdominal pain Genitourinary: Denies: dysuria Musculoskeletal: Denies: back pain Skin: Denies: rash Neurological: Denies: weakness Past Medical History Past Medical History: Asthma Additional Past Medical History / Comment(s): cyclic vomiting History of Any Multi-Drug Resistant Organisms: None Reported Past Surgical History: No Surgical Hx Reported Additional Past Surgical History / Comment(s): wisdom teeth extracted Past Anesthesia/Blood Transfusion Reactions: No Reported Reaction Past Psychological History: No Psychological Hx Reported Smoking Status: Current some day smoker Past Alcohol Use History: Occasional Past Drug Use History: Marijuana General Exam Limitations: no limitations General appearance: alert, in no apparent distress Head exam: Present: normocephalic Eye exam: Present: normal appearance Neck exam: Present: normal inspection Respiratory exam: Present: normal lung sounds bilaterally Cardiovascular Exam: Present: regular rate, normal rhythm GI/Abdominal exam: Present: soft. Absent: distended, tenderness Extremities exam: Present: normal inspection Neurological exam: Present: alert Psychiatric exam: Present: normal affect, normal mood Skin exam: Present: normal color Course Vital Signs 07/24/20 16:23 Temperature 98.1 F Pulse Rate 98 Respiratory 18 Rate Blood Pressure 122/82 O2 Sat by Pulse 99 Oximetry Medical Decision Making - Medical Decision Making Patient reevaluated and feeling much better. Patient comfortable with discharge home. Patient and family updated on results and need for follow-up. Patient is receptive to Reglan prescription - Lab Data Result diagrams: 07/24/20 17:06 07/24/20 17:06 Lab Results 07/24/20 07/24/20 07/24/20 Range/Units 17:06 17:06 17:26 WBC 8.8 (3.8-10.6) k/uL RBC 4.96 (3.80-5.40) m/uL Hgb 15.5 (11.4-16.0) gm/dL Hct 45.0 (34.0-46.0) % MCV 90.7 (80.0-100.0) fL MCH 31.3 (25.0-35.0) pg MCHC 34.6 (31.0-37.0) g/dL RDW 12.2 (11.5-15.5) % Plt Count 281 (150-450) k/uL MPV 6.7 Neutrophils % 78 % Lymphocytes % 14 % Monocytes % 5 % Eosinophils % 1 % Basophils % 0 % Neutrophils # 6.9 (1.3-7.7) k/uL Lymphocytes # 1.2 (1.0-4.8) k/uL Monocytes # 0.5 (0-1.0) k/uL Eosinophils # 0.1 (0-0.7) k/uL Basophils # 0.0 (0-0.2) k/uL Sodium 138 (137-145) mmol/L Potassium 3.9 (3.5-5.1) mmol/L Chloride 105 (98-107) mmol/L Carbon Dioxide 24 (22-30) mmol/L Anion Gap 9 mmol/L BUN 6 L (7-17) mg/dL Creatinine 0.56 (0.52-1.04) mg/dL Est GFR (CKD-EPI)AfAm >90 (>60 ml/min/1.73 sqM) Est GFR (CKD-EPI)NonAf >90 (>60 ml/min/1.73 sqM) Glucose 98 (74-99) mg/dL Calcium 10.0 (8.4-10.2) mg/dL Total Bilirubin 0.6 (0.2-1.3) mg/dL AST 26 (14-36) U/L ALT 16 (4-34) U/L Alkaline Phosphatase 69 (38-126) U/L Total Protein 8.7 H (6.3-8.2) g/dL Albumin 5.2 H (3.5-5.0) g/dL Amylase 82 (30-110) U/L Lipase 138 (23-300) U/L Urine Color Light Yellow Urine Appearance Clear (Clear) Urine pH 6.5 (5.0-8.0) Ur Specific [place] 1.004 (1.001-1.035) Urine Protein Negative (Negative) Urine Glucose (UA) Negative (Negative) Urine Ketones 1+ H (Negative) Urine Blood Negative (Negative) Urine Nitrite Negative (Negative) Urine Bilirubin Negative (Negative) Urine Urobilinogen <2.0 (<2.0) mg/dL Ur Leukocyte Esterase Negative (Negative) Disposition Clinical Impression: Vomiting Disposition: HOME SELF-CARE Condition: Stable Instructions (If sedation given, give patient instructions): Acute Nausea and Vomiting (ED) Additional Instructions: Prescription for Reglan has been sent to the pharmacy. Please do follow-up with primary care physician in the next day or 2 for recheck. Return for vomiting, fevers, pain, worsening or changing symptoms or other concerns. Prescriptions: Metoclopramide HCl [Reglan] 10 mg PO Q6HR PRN #15 tablet PRN Reason: Nausea Is patient prescribed a controlled substance at d/c from ED?: No Referrals: Zbigniew Muir [STAFF PHYSICIAN] - 1-2 days Time of Disposition: 18:11
[2020-07-24 17:10] LABS: Basophils % (A) 0 %; Eosinophils # (A) 0.1 k/uL (0-0.7); Eosinophils % (A) 1 %; HGB 15.5 gm/dL (11.4-16.0); Lymphocytes # (A) 1.2 k/uL (1.0-4.8); Lymphocytes % (A) 14 %; MCH 31.3 pg (25.0-35.0); MCHC 34.6 g/dL (31.0-37.0); MCV 90.7 fL (80.0-100.0); Mean Platelet Volume 6.7; Monocytes # (A) 0.5 k/uL (0-1.0); Monocytes % (A) 5 %; Neutrophils # (A) 6.9 k/uL (1.3-7.7); Neutrophils % (A) 78 %; Platelet Count 281 k/uL (150-450); RBC 4.96 m/uL (3.80-5.40); RDW 12.2 % (11.5-15.5); WBC 8.8 k/uL (3.8-10.6)
[2020-07-24 17:18] LABS: ALT 16 U/L (4-34); AST 26 U/L (14-36); African American GFR (CKD) >90 (>60 ml/min/1.73 sqM); Albumin 5.2 g/dL (3.5-5.0); Alkaline Phosphatase 69 U/L (38-126); Amylase 82 U/L (30-110); Anion Gap 9 mmol/L; Blood Urea Nitrogen 6 mg/dL (7-17); Carbon Dioxide 24 mmol/L (22-30); Chloride 105 mmol/L (98-107); Glucose 98 mg/dL (74-99); Lipase 138 U/L (23-300); Non-African American GFR(CKD) >90 (>60 ml/min/1.73 sqM); Potassium 3.9 mmol/L (3.5-5.1); Sodium 138 mmol/L (137-145); Total Bilirubin 0.6 mg/dL (0.2-1.3); Total Protein 8.7 g/dL (6.3-8.2)
[2020-07-24 17:30] LABS: Appearance,Urine Clear (Clear); Bilirubin,Urine Negative (Negative); Blood,Urine Negative (Negative); Color,Urine Light Yellow; Glucose,Urine (UA) Negative (Negative); Ketones,Urine 1+ (Negative); Leukocyte Esterase,Urine Negative (Negative); Nitrite,Urine Negative (Negative); PH, Urine 6.5 (5.0-8.0); Protein,Urine Negative (Negative); Specific Gravity,Urine 1.004 (1.001-1.035); Urobilinogen,Urine <2.0 mg/dL (<2.0)
[2020-07-24 18:48] VITALS: BP 113/76; PULSE 81
== END 2020-07-24 18:36 | disposition home or self-care (01) ==
LOC: EC 16:16
DX: R11.10 Vomiting, unspecified (principal); J45.909 Unspecified asthma, uncomplicated; F12.90 Cannabis use, unspecified, uncomplicated; F17.200 Nicotine dependence, unspecified, uncomplicated
CPT/HCPCS: 36415; 80053; 82150; 83690; 85025; 81003; 99283; 96374; 96375 ×3; 96361; J1200; J2765

== ENCOUNTER 2020-07-26 07:49 | Emergency (ER) | payer BC ==
[2020-07-26 07:53] VITALS: RESP 18; TEMP 98
[2020-07-26] MEDS ORDERED: SODIUM CHLORIDE 0.9% 2,000 ML IV STA (08:10)
[2020-07-26] MEDS ORDERED: PANTOPRAZOLE 40 MG/10 ML VIAL IVP STA (08:10)
--- NOTE | 2020-07-26 08:15 | ED ---
Nausea/Vomiting/Diarrhea HPI - General Chief complaint: Nausea/Vomiting/Diarrhea Stated complaint: nausea, vomiting Time Seen by Provider: 07/26/20 08:02 Source: patient, RN notes reviewed Mode of arrival: ambulatory Limitations: no limitations - History of Present Illness Initial comments: 25-year-old female presents emergency Department chief complaint nausea vomiting. Patient was just seen here in emergency Department for similar complaints. This is a chronic issue since she was very young states that she has cyclic vomiting syndrome. Patient states that she has some upper abdominal pain. No severe diarrhea no hematemesis or coffee-ground emesis. Denies any fevers chills no chest pain or shortness breath no prior abdominal surgeries denies any chance . - Related Data Previous Rx's Medication Instructions Recorded Metoclopramide HCl [Reglan] 10 mg PO Q6HR PRN #15 tablet 07/24/20 Ondansetron Odt [Zofran Odt] 4 mg PO Q8HR PRN #10 tab 07/26/20 Allergies Allergy/AdvReac Type Severity Reaction Status Date / Time No Known Allergies Allergy Verified 07/26/20 07:50 Review of Systems ROS Statement: Those systems with pertinent positive or pertinent negative responses have been documented in the HPI. ROS Other: All systems not noted in ROS Statement are negative. Past Medical History Past Medical History: Asthma Additional Past Medical History / Comment(s): cyclic vomiting History of Any Multi-Drug Resistant Organisms: None Reported Past Surgical History: No Surgical Hx Reported Additional Past Surgical History / Comment(s): wisdom teeth extracted Past Anesthesia/Blood Transfusion Reactions: No Reported Reaction Past Psychological History: No Psychological Hx Reported Smoking Status: Never smoker Past Alcohol Use History: None Reported Past Drug Use History: Marijuana General Exam Limitations: no limitations General appearance: alert, in no apparent distress Head exam: Present: atraumatic, normocephalic, normal inspection Eye exam: Present: normal appearance, PERRL, EOMI. Absent: scleral icterus, conjunctival injection, periorbital swelling ENT exam: Present: normal exam, normal oropharynx, mucous membranes moist Neck exam: Present: normal inspection, full ROM. Absent: tenderness, meningismus, lymphadenopathy Respiratory exam: Present: normal lung sounds bilaterally. Absent: respiratory distress, wheezes, rales, rhonchi, stridor Cardiovascular Exam: Present: normal rhythm, tachycardia, normal heart sounds. Absent: systolic murmur, diastolic murmur, rubs, gallop, clicks GI/Abdominal exam: Present: soft, tenderness, normal bowel sounds. Absent: distended, guarding, rebound, rigid Back exam: Absent: CVA tenderness (R), CVA tenderness (L) Neurological exam: Present: alert Skin exam: Present: warm, dry, intact, normal color. Absent: rash Course Vital Signs 07/26/20 07:50 Temperature 98 F Pulse Rate 121 H Respiratory 18 Rate Blood Pressure 125/78 O2 Sat by Pulse 97 Oximetry - Reevaluation(s) Reevaluation #1: 07/26/20 09:28 Patient reevaluated patient states she is improving though she feels anxious. Patient states her nausea is improving. Medical Decision Making - Medical Decision Making 25-year-old presented for nausea vomiting. Patient has known cyclic vomiting, recurrent issues patient does admit to marijuana use. Patient's labs are unremarkable. Patient's well hydrated, given antiemetics symptoms have improved. Patient we discharged advised to continue her Zofran - Lab Data Result diagrams: 07/26/20 08:24 07/26/20 08:24 Lab Results 07/26/20 07/26/20 07/26/20 Range/Units 08:24 08:24 08:24 WBC 6.6 (3.8-10.6) k/uL RBC 4.53 (3.80-5.40) m/uL Hgb 13.8 (11.4-16.0) gm/dL Hct 41.3 (34.0-46.0) % MCV 91.2 (80.0-100.0) fL MCH 30.4 (25.0-35.0) pg MCHC 33.4 (31.0-37.0) g/dL RDW 12.9 (11.5-15.5) % Plt Count 245 (150-450) k/uL MPV 6.8 Neutrophils % 50 % Lymphocytes % 34 % Monocytes % 9 % Eosinophils % 4 % Basophils % 1 % Neutrophils # 3.3 (1.3-7.7) k/uL Lymphocytes # 2.2 (1.0-4.8) k/uL Monocytes # 0.6 (0-1.0) k/uL Eosinophils # 0.3 (0-0.7) k/uL Basophils # 0.1 (0-0.2) k/uL Sodium (137-145) mmol/L Potassium (3.5-5.1) mmol/L Chloride (98-107) mmol/L Carbon Dioxide (22-30) mmol/L Anion Gap mmol/L BUN (7-17) mg/dL Creatinine (0.52-1.04) mg/dL Est GFR (CKD-EPI)AfAm (>60 ml/min/1.73 sqM) Est GFR (CKD-EPI)NonAf (>60 ml/min/1.73 sqM) Glucose (74-99) mg/dL Calcium (8.4-10.2) mg/dL Total Bilirubin (0.2-1.3) mg/dL AST (14-36) U/L ALT (4-34) U/L Alkaline Phosphatase (38-126) U/L Total Protein (6.3-8.2) g/dL Albumin (3.5-5.0) g/dL Lipase (23-300) U/L Urine Color Yellow Urine Appearance Cloudy H (Clear) Urine pH 5.5 (5.0-8.0) Ur Specific [place] 1.016 (1.001-1.035) Urine Protein Negative (Negative) Urine Glucose (UA) Negative (Negative) Urine Ketones Negative (Negative) Urine Blood Negative (Negative) Urine Nitrite Negative (Negative) Urine Bilirubin Negative (Negative) Urine Urobilinogen <2.0 (<2.0) mg/dL Ur Leukocyte Esterase Moderate H (Negative) Urine RBC 3 (0-5) /hpf Urine WBC 12 H (0-5) /hpf Ur Squamous Epith Cells 31 H (0-4) /hpf Urine Bacteria Rare H (None) /hpf Urine Mucus Occasional H (None) /hpf Urine HCG, Qual Not Detected (Not Detectd) 07/26/20 Range/Units 08:24 WBC (3.8-10.6) k/uL RBC (3.80-5.40) m/uL Hgb (11.4-16.0) gm/dL Hct (34.0-46.0) % MCV (80.0-100.0) fL MCH (25.0-35.0) pg MCHC (31.0-37.0) g/dL RDW (11.5-15.5) % Plt Count (150-450) k/uL MPV Neutrophils % % Lymphocytes % % Monocytes % % Eosinophils % % Basophils % % Neutrophils # (1.3-7.7) k/uL Lymphocytes # (1.0-4.8) k/uL Monocytes # (0-1.0) k/uL Eosinophils # (0-0.7) k/uL Basophils # (0-0.2) k/uL Sodium 139 (137-145) mmol/L Potassium 4.0 (3.5-5.1) mmol/L Chloride 108 H (98-107) mmol/L Carbon Dioxide 21 L (22-30) mmol/L Anion Gap 10 mmol/L BUN 7 (7-17) mg/dL Creatinine 0.59 (0.52-1.04) mg/dL Est GFR (CKD-EPI)AfAm >90 (>60 ml/min/1.73 sqM) Est GFR (CKD-EPI)NonAf >90 (>60 ml/min/1.73 sqM) Glucose 86 (74-99) mg/dL Calcium 9.1 (8.4-10.2) mg/dL Total Bilirubin 0.7 (0.2-1.3) mg/dL AST 26 (14-36) U/L ALT 13 (4-34) U/L Alkaline Phosphatase 49 (38-126) U/L Total Protein 7.5 (6.3-8.2) g/dL Albumin 4.5 (3.5-5.0) g/dL Lipase 175 (23-300) U/L Urine Color Urine Appearance (Clear) Urine pH (5.0-8.0) Ur Specific [place] (1.001-1.035) Urine Protein (Negative) Urine Glucose (UA) (Negative) Urine Ketones (Negative) Urine Blood (Negative) Urine Nitrite (Negative) Urine Bilirubin (Negative) Urine Urobilinogen (<2.0) mg/dL Ur Leukocyte Esterase (Negative) Urine RBC (0-5) /hpf Urine WBC (0-5) /hpf Ur Squamous Epith Cells (0-4) /hpf Urine Bacteria (None) /hpf Urine Mucus (None) /hpf Urine HCG, Qual (Not Detectd) Disposition Clinical Impression: Nausea & vomiting Disposition: HOME SELF-CARE Condition: Stable Instructions (If sedation given, give patient instructions): Acute Nausea and Vomiting (ED) Additional Instructions: Please return to the Emergency Department if symptoms worsen or any other concerns. Prescriptions: Ondansetron Odt [Zofran Odt] 4 mg PO Q8HR PRN #10 tab PRN Reason: Nausea Is patient prescribed a controlled substance at d/c from ED?: No Referrals: None,Stated [Primary Care Provider] - 1-2 days Time of Disposition: 09:30
[2020-07-26 08:35] LABS: Basophils # (A) 0.1 k/uL (0-0.2); Basophils % (A) 1 %; Eosinophils # (A) 0.3 k/uL (0-0.7); Eosinophils % (A) 4 %; HCT 41.3 % (34.0-46.0); HGB 13.8 gm/dL (11.4-16.0); Lymphocytes # (A) 2.2 k/uL (1.0-4.8); Lymphocytes % (A) 34 %; MCH 30.4 pg (25.0-35.0); MCHC 33.4 g/dL (31.0-37.0); MCV 91.2 fL (80.0-100.0); Mean Platelet Volume 6.8; Monocytes # (A) 0.6 k/uL (0-1.0); Monocytes % (A) 9 %; Neutrophils # (A) 3.3 k/uL (1.3-7.7); Neutrophils % (A) 50 %; Platelet Count 245 k/uL (150-450); RBC 4.53 m/uL (3.80-5.40); RDW 12.9 % (11.5-15.5); WBC 6.6 k/uL (3.8-10.6)
[2020-07-26 08:44] LABS: ALT 13 U/L (4-34); AST 26 U/L (14-36); African American GFR (CKD) >90 (>60 ml/min/1.73 sqM); Albumin 4.5 g/dL (3.5-5.0); Alkaline Phosphatase 49 U/L (38-126); Anion Gap 10 mmol/L; Blood Urea Nitrogen 7 mg/dL (7-17); Calcium 9.1 mg/dL (8.4-10.2); Carbon Dioxide 21 mmol/L (22-30); Chloride 108 mmol/L (98-107); Glucose 86 mg/dL (74-99); Lipase 175 U/L (23-300); Non-African American GFR(CKD) >90 (>60 ml/min/1.73 sqM); Sodium 139 mmol/L (137-145); Total Bilirubin 0.7 mg/dL (0.2-1.3); Total Protein 7.5 g/dL (6.3-8.2)
[2020-07-26 08:52] LABS: Appearance,Urine Cloudy (Clear); Bacteria,Urine Rare /hpf; Bilirubin,Urine Negative (Negative); Blood,Urine Negative (Negative); Color,Urine Yellow; Glucose,Urine (UA) Negative (Negative); Ketones,Urine Negative (Negative); Leukocyte Esterase,Urine Moderate (Negative); Mucus,Urine Occasional /hpf; Nitrite,Urine Negative (Negative); PH, Urine 5.5 (5.0-8.0); Protein,Urine Negative (Negative); RBC,Urine 3 /hpf (0-5); Specific Gravity,Urine 1.016 (1.001-1.035); Squamous Epithelial Cell,Urine 31 /hpf (0-4); Urobilinogen,Urine <2.0 mg/dL (<2.0); WBC,Urine 12 /hpf (0-5)
[2020-07-26] MEDS ORDERED: diphenhydrAMINE 50 MG/ML 1 ML VIAL IVP STA (08:52)
[2020-07-26] MEDS ORDERED: KETOROLAC 15 MG/ML 1 ML VIAL IVP STA (09:13)
[2020-07-26] MEDS ORDERED: LORazepam 2 MG/ML INJ IV STA (09:25)
[2020-07-26 10:33] VITALS: BP 122/73; PULSE 110
== END 2020-07-26 10:32 | disposition home or self-care (01) ==
LOC: EC 07:49
DX: R11.2 Nausea with vomiting, unspecified (principal); J45.909 Unspecified asthma, uncomplicated; F12.90 Cannabis use, unspecified, uncomplicated
CPT/HCPCS: 36415; 80053; 83690; 85025; 81001; 81025; 87086; 99284; 96361 ×2; 96374; 96375 ×4; J2060; J1200; J1885; C9113; J1790